=== PATIENT | female | born 1995 | race Hispanic/Latino ===

== ENCOUNTER 2017-10-23 10:02 | Emergency (ER) | payer OTHER ==
[2017-10-23] MEDS ORDERED: ACETAMINOPHEN 325 MG TAB ONE (11:06)
== END 2017-10-23 11:39 | disposition home or self-care (01) ==
LOC: EDH 10:02
DX: O26.893 Other specified pregnancy related conditions, third trimester (principal); G44.209 Tension-type headache, unspecified, not intractable; Z3A.33 33 weeks gestation of pregnancy

== ENCOUNTER 2018-06-28 17:37 | Emergency (ER) | payer OTHER ==
[2018-06-28 18:42] LABS: APPEARANCE,URINE Clear (CLEAR); BILIRUBIN,URINE Negative (NEGATIVE); COLOR,URINE Yellow (YELLOW); GLUCOSE, URINE (UA) Negative (NEGATIVE); HCG,QUAL RESULT POSITIVE (NEGATIVE); KETONES,URINE Negative (NEGATIVE); LEUKOCYTE ESTERASE ,URINE Negative (NEGATIVE); NITRATE,URINE Negative (NEGATIVE); OCCULT BLOOD,URINE Negative (NEGATIVE); PH,URINE 7.5 (5.0-8.0); PROTEIN,URINE Negative (NEGATIVE)
[2018-06-28] MEDS ORDERED: AZITHROMYCIN 250 MG TABLET PO ONE (19:10)
[2018-06-28] MEDS ORDERED: CEFTRIAXONE SODIUM 500 MG VIAL ONE (19:10)
[2018-06-28] MEDS ORDERED: LIDOCAINE HCL-MPF 1% 2ML VIAL ONE (19:10)
== END 2018-06-28 19:50 | disposition home or self-care (01) ==
LOC: EDH 17:37
DX: O26.891 Other specified pregnancy related conditions, first trimester (principal); R30.0 Dysuria; Z3A.12 12 weeks gestation of pregnancy
CPT/HCPCS: 81003; 81025; 87486; 87797; 96372; 99284; J0696; J3490

== ENCOUNTER 2019-04-24 00:23 | Emergency (ER) | payer OTHER ==
[2019-04-24] MEDS ORDERED: LIDOCAINE HCL 2% VISCOUS 15 ML UDCUP ONE (00:40)
== END 2019-04-24 01:13 | disposition home or self-care (01) ==
LOC: EDH 00:23
DX: K02.9 Dental caries, unspecified (principal)

== ENCOUNTER 2020-05-18 18:18 | Emergency (ER) | payer OTHER ==
[2020-05-18 18:47] LABS: APPEARANCE,URINE Clear (CLEAR); BILIRUBIN,URINE Negative (NEGATIVE); COLOR,URINE Yellow (YELLOW); GLUCOSE, URINE (UA) Negative (NEGATIVE); KETONES,URINE Negative (NEGATIVE); LEUKOCYTE ESTERASE ,URINE Negative (NEGATIVE); NITRATE,URINE Negative (NEGATIVE); OCCULT BLOOD,URINE Negative (NEGATIVE); PROTEIN,URINE Negative (NEGATIVE); UROBILINOGEN,URINE 0.2 mg/dL (0.2-1.0)
[2020-05-18 18:51] LABS: HCG,QUAL RESULT NEGATIVE (NEGATIVE)
[2020-05-18] MEDS ORDERED: CEFTRIAXONE SODIUM 500 MG VIAL ONE (20:28)
[2020-05-18] MEDS ORDERED: DOXYCYCLINE HYCLATE 100 MG TABLET PO ONE (20:28)
[2020-05-18] MEDS ORDERED: LIDOCAINE HCL 1% 20 ML VIAL ONE (20:29)
== END 2020-05-18 20:38 | disposition home or self-care (01) ==
LOC: EDH 18:18
DX: A64 Unspecified sexually transmitted disease (principal); K21.9 Gastro-esophageal reflux disease without esophagitis
CPT/HCPCS: 81003; 81025; 87486; 87797; 96372; 99283; J0696